=== PATIENT | male | born 1985 | race Caucasian/White ===

== ENCOUNTER 2023-08-21 14:20 | Emergency (ER) | payer OTHER ==
[2023-08-21 14:31] LABS: BASOPHILS PERCENT AUTO 0.9 % (0.1-1.3); EOSINOPHILS ABSOLUTE AUTO 0.23 K/uL (0.00-0.40); HEMATOCRIT 41.5 % (38.4-49.7); HEMOGLOBIN 14.9 g/dL (12.9-16.9); IMMATURE GRAN ABSOLUTE AUTO 0.03 K/uL (0.00-0.23); IMMATURE GRAN PERCENT AUTO 0.3 % (0.0-0.7); LYMPHOCYTES ABSOLUTE AUTO 1.71 K/uL (0.8-3.3); LYMPHOCYTES PERCENT AUTO 14.9 % (11.4-47.7); MEAN CORPUSCULAR HEMOGLOBIN 32.5 pg (31.6-35.5); MEAN CORPUSCULAR HGB CONC 35.9 g/dL (31.6-35.5); MEAN CORPUSCULAR VOLUME 90.4 fL (81.4-99.0); MONOCYTES ABSOLUTE AUTO 1.04 K/uL (0.20-0.90); MONOCYTES PERCENT AUTO 9.1 % (3.3-12.6); NEUTROPHILS ABSOLUTE AUTO 8.34 K/uL (1.0-7.6); NEUTROPHILS PERCENT AUTO 72.8 % (40.0-78.1); PLATELET COUNT,PLT 300 K/uL (130-375); RED BLOOD CELL COUNT 4.59 M/uL (4.14-5.76); WHITE BLOOD CELL COUNT,WBC 11.5 K/uL (3.2-11.0)
[2023-08-21 14:45] LABS: CALCIUM 9.3 mg/dL (8.5-10.1); EST CRCL DRUG DOSING (CG) 83.54 mL/min; POTASSIUM,K 3.4 mmol/L (3.6-5.2)
[2023-08-21 14:46] LABS: ANION GAP 12.4 mmol/L (5.0-14.0)
[2023-08-21] MEDS: Iopamidol 612 MG/ML 100 ML Bottle IV ONE (19:55)
[2023-08-21] MEDS: Sodium Chloride 0.9% 100 ML IV ONE (19:55)
[2023-08-21] MEDS: Sodium Chloride 0.9% 10 ML Syringe FLUSH ONE (19:56)
== END 2023-08-21 16:55 | disposition home or self-care (01) ==
LOC: JP.ED 14:20
DX: S69.91XA Unspecified injury of right wrist, hand and finger(s), initial encounter (principal); Z88.0 Allergy status to penicillin; Z79.899 Other long term (current) drug therapy; V86.56XA Driver of dirt bike or motor/cross bike injured in nontraffic accident, initial encounter; Y93.89 Activity, other specified
CPT/HCPCS: 36415; 70450; 71260; 72125; 73090-26-RT; 73090-RT; 73110-26-RT; 73110-RT; 74177; 76377; 80048; 85025; 99284; J3490; Q9967